=== PATIENT | male | born 1975 | race Caucasian/White ===

== ENCOUNTER 2024-04-20 13:33 | Observation (INO) ==
[2024-04-20 14:17] LABS: BASOPHILS % (AUTO) 0.6 % (0.2-1.0); EOSINOPHILS # (AUTO) 0.3 x10^3/uL (0.0-0.2); EOSINOPHILS % (AUTO) 5.3 % (0.9-2.9); HEMOGLOBIN 13.1 g/dL (13.5-18.0); LYMPHOCYTES # (AUTO) 0.5 X10^3/uL (1.3-2.9); LYMPHOCYTES % (AUTO) 8.7 % (21.0-51.0); MEAN CORPUSCULAR HEMOGLOBIN 23.1 pg (27.0-34.0); MEAN CORPUSCULAR HGB CONC 31.2 g/dL (33.0-35.0); MEAN PLATELET VOLUME 7.6 fL (7.4-11.0); MONOCYTES # (AUTO) 0.6 x10^3/uL (0.3-0.8); MONOCYTES % (AUTO) 10.7 % (0.0-13.0); NEUTROPHILS % (AUTO) 74.7 % (42.0-75.0); PLATELET COUNT 198 X10^3/uL (150.0-450.0); RED BLOOD COUNT 5.68 X10^6/uL (4.7-6.0); RED CELL DISTRIBUTION WIDTH 16.7 % (11.6-16.5); WHITE BLOOD COUNT 5.4 X10^3/uL (3.6-10.0)
[2024-04-20 14:22] LABS: INR 1.03 (0.8-1.3)
[2024-04-20 14:22] LABS: ABG BASE EXCESS 18.5 mmol/L (-2.0-2.0)
[2024-04-20 14:23] LABS: ABG HCO3 46.2 mmol/L (22-26)
[2024-04-20 14:29] LABS: ALANINE AMINOTRANSFERASE 25 Units/L (12-78); ALBUMIN 3.3 g/dL (3.4-5.0); ALKALINE PHOSPHATASE 120 Units/L (46-116); ASPARTATE AMINO TRANSFERASE 16 Units/L (15-37); BLOOD UREA NITROGEN 11 mg/dL (7-18); CALCIUM 9.3 mg/dL (8.5-10.1); CARBON DIOXIDE 41.5 mmol/L (21-32); CHLORIDE 98 mmol/L (98-107); COR CA(FOR HYPOALB) 9.9 mg/dL (8.5-10.1); COR NA(FOR HYPERGLY) 141 mmol/L (136-145); CREATINE KINASE 46 Units/L (39-308); GLUCOSE 148 mg/dL (65-99); MAGNESIUM 1.5 mg/dL (2.0-2.9); POTASSIUM 4.8 mmol/L (3.5-5.1); SODIUM 140 mmol/L (136-145); TOTAL PROTEIN 7.7 g/dL (6.4-8.2); eGFR NON BLACK RACES > 60 (>60)
[2024-04-20 14:38] LABS: PLATELET MORPHOLOGY COMMENT NORMAL (NORMAL)
[2024-04-20 14:39] LABS: MICROCYTOSIS SLIGHT
[2024-04-20] MEDS: DECADRON INJ IVP ONE (15:16)
[2024-04-20] MEDS: DUONEB 0.5 MG/3 MG (3 mL) NEB ONE (15:20)
--- NOTE | 2024-04-20 15:21 | EKG ---
Test Reason : Dyspnea Blood Pressure : */* mmHG Vent. Rate : 95 BPM Atrial Rate : 95 BPM P-R Int : 148 ms QRS Dur : 80 ms QT Int : 348 ms P-R-T Axes : 74 49 67 degrees QTc Int : 437 ms Normal sinus rhythm Normal ECG No previous ECGs available Confirmed by Narinder Bryson MD ([id number]) on 04/21/2024 7:46:58 AM Referred By: Confirmed By: Narinder Bryson MD
--- NOTE | 2024-04-20 16:44 | RAD ---
EXAM: CHEST, 1 VIEW HISTORY: SHORTNESS OF BREATH; COMPARISON: None. TECHNIQUE: Single frontal view of the chest FINDINGS: Limited inspiratory effort results in suboptimal evaluation. Subsegmental linear airspace opacities are demonstrated within the left lung base probably corresponding to atelectatic change. The left di aphragm is slightly elevated. The heart size appears average for inspiratory effort. There is no pn eumothorax. IMPRESSION: Suboptimal evaluation due to limited inspiratory effort with subsegmental left basilar atelectasis. Consider diagnostic two-view chest at earliest convenience. THIS IS AN ELECTRONICALLY VERIFIED FINAL REPORT 04/20/2024 4:40 PM - Electronically signed by Wayne Fletcher MD
--- NOTE | 2024-04-20 16:52 | CT ---
EXAM:CT PULMONARY ANGIOGRAM CHEST WITH CONTRAST (PE PROTOCOL)HISTORY:CHEST PAIN, DYSPNEA;COMPARISON:None.TECHNIQUE:Axial CT images were obtained through the chest after the intravenous administration of contrast. Coronal reformatted images were included. Maximum intensity projection (MIP) images were performed per pulmonary angiogram protocol.Informed written consent was obtained prior to contrast administration.All CT scans at this facility use dose modulation, iterative reconstruction, and/or weight based dosing when appropriate to reduce radiation dose to as low as reasonably achievable.FINDINGS:HEART AND PULMONARY ARTERIES: No pulmonary embolism is evident. Main pulmonary artery is enlarged, suggesting pulmonary hypertension. Heart size appears mildly enlarged. Coronary artery atherosclerosis. Small hiatal hernia.SUPPORT DEVICES: NoneLYMPH NODES: Mediastinal, hilar, and supraclavicular lymphadenopathy is noted, suggesting possible lymphoma or less likely metastatic disease. Reference conglomerate of lymph nodes in the right paratracheal region measure up to 5.0 x 3.1 cm. Conglomerate of right hilar lymph nodes measures 3.6 x 4.2 cm. An enlarged right supraclavicular lymph node measures 2.5 x 1.6 cm.LUNGS AND PLEURA: Hypoventilatory changes noted at the lung bases. Small volume fluid noted within the right major fissure. Small left pleural effusion.AIRWAYS: NormalUPPER ABDOMEN: Mildly enlarged lymph nodes identified within the gastrohepatic ligament measures 1.8 cm in size. Epiphrenic lymph node measures 1.7 x 1.5 cm. Contrast material is noted within the kidneys bilaterally.BONES: Degenerative changes noted within the visualized thoracolumbar spine.IMPRESSION:Extensive lymphadenopathy identified within the chest and upper abdomen, in a pattern suggesting possible lymphoma. Correlation recommended.No pulmonary embolism.Main pulmonary artery is mildly enlarged, suggesting pulmonary hypertension.Small left pleural effusion. Hypoventilatory changes noted within the lungs.THIS IS AN ELECTRONICALLY VERIFIED FINAL REPORT04/20/2024 4:49 PM - Electronically signed by Preston Head MD
--- NOTE | 2024-04-20 18:29 | DR.SOBA ---
HPI Time Seen Time Seen by Provider: 04/20/24 13:48 Primary Care Physician Primary Care Physician: Dr. Haile Complaints Chief Complaint Doctors Comments: 49 yo M, hx of COPD, c/o increasing dyspnea over the past month, markedly worse the past couple days. c/o assoc orthopnea. Denies fever or chest pain. Denies prod cough. Chief Complaint:: Pt c/o chronic dyspnea that has been progressively worsening over the past month. Pt states that last night when he laid down in the bed he felt like he was suffocating and had to get back up to be able to breathe. Pt denies any cough or fever. Pt does c/o right wrist pain described as mild aching in nature. Denies any injury. Pt states, "I think I'm having a gout flare." COVID-19 Coronavirus risk:travel/contact w/high risk person: No Has patient experienced Coronavirus symptoms: No Source History Provided: Patient Mode of Arrival Mode of Arrival: Ambulatory Timing Onset of Chief Complaint: 04/19/24 PMH PMH Past Medical History: Yes Past Medical History: COPD, Gout and Hypertension Past Medical History Comment: PVD Past Surgical History: No Family History History of Family Medical Conditions: Yes Family Medical History: Diabetes Mellitus, [place], Coronary Artery Disease and Hypertension Social History Does patient currently use any type of tobacco product: No Have you used tobacco products in the last 12 months: No Type of Tobacco Use: None Does any household member use tobacco: No Alcohol Use: None Do you use any recreational Drugs:: No Lives With: Family Lives Where: Home Travel Risk Coronavirus risk:travel/contact w/high risk person: No Has patient experienced Coronavirus symptoms: No Infectious screening In the last 2 months have you had wt loss of >10#?: NO Have you had fever, night sweats or hemotysis?: No Have you traveled outside the country in the last 6 months?: No Isolation: Standard ROS Review of Systems Respiratoy: Short of Breath All Other Systems: Reviewed and Negative PE Vital Signs Vitals: Vital Signs Temperature 98.7 F Pulse Rate 99 Pulse Rate 102 Pulse Rate 95 Pulse Rate 92 Pulse Rate 109 Pulse Rate 95 Pulse Rate 92 Pulse Rate 97 Pulse Rate 96 Pulse Rate 98 Pulse Rate 113 Pulse Rate 91 Pulse Rate 91 Pulse Rate 92 Pulse Rate 90 Pulse Rate 84 Pulse Rate 87 Pulse Rate 88 Pulse Rate 92 Pulse Rate 94 Pulse Rate 92 Pulse Rate 92 Pulse Rate 99 Respiratory Rate 40 Respiratory Rate 42 Respiratory Rate 39 Respiratory Rate 42 Respiratory Rate 56 Respiratory Rate 29 Respiratory Rate 40 Respiratory Rate 34 Respiratory Rate 38 Respiratory Rate 45 Respiratory Rate 44 Respiratory Rate 33 Respiratory Rate 35 Respiratory Rate 28 Respiratory Rate 24 Respiratory Rate 36 Respiratory Rate 37 Respiratory Rate 29 Respiratory Rate 51 Respiratory Rate 22 Respiratory Rate 36 Respiratory Rate 26 Blood Pressure 165/86 Blood Pressure 165/86 Blood Pressure 151/92 Blood Pressure 160/90 Blood Pressure 148/80 Blood Pressure 160/92 Blood Pressure 155/81 Blood Pressure 131/70 Blood Pressure 135/75 Blood Pressure 138/78 Blood Pressure 133/80 Blood Pressure 127/64 O2 Sat by Pulse Oximetry 92 O2 Sat by Pulse Oximetry 92 O2 Sat by Pulse Oximetry 93 O2 Sat by Pulse Oximetry 94 O2 Sat by Pulse Oximetry 93 O2 Sat by Pulse Oximetry 93 O2 Sat by Pulse Oximetry 94 O2 Sat by Pulse Oximetry 95 O2 Sat by Pulse Oximetry 94 O2 Sat by Pulse Oximetry 86 O2 Sat by Pulse Oximetry 94 O2 Sat by Pulse Oximetry 95 O2 Sat by Pulse Oximetry 98 O2 Sat by Pulse Oximetry 95 O2 Sat by Pulse Oximetry 94 O2 Sat by Pulse Oximetry 94 O2 Sat by Pulse Oximetry 95 O2 Sat by Pulse Oximetry 88 O2 Sat by Pulse Oximetry 88 O2 Sat by Pulse Oximetry 90 O2 Sat by Pulse Oximetry 84 General Limitations: No Limitations General Appearance: Alert and In No Apparent Distress Head Head Exam: Normal Inspection Eyes Eye exam: Normal Appearance ENT ENT Exam: Normal Exam Neck Neck Exam: Normal Inspection Chest Chest Inspection: Normal Inspection Respiratory Respiratory Exam: Normal Lung Sounds Bilat; negative Prolonged Expiratory Phase or Respiratory Distress Cardiovascular Cardiovascular Exam: Regular Rate and Normal Rhythm Abdominal Exam Abdominal Exam: Normal Inspection, Normal Bowel Sounds and Soft Extremities Extremities Exam: Normal Inspection Back Back Exam: Normal Inspection Neurologic Neurological Exam: Alert and Oriented X3 Psychiatric Psychiatric Exam: Normal Affect and Normal Mood Skin Skin Exam: Warm, Dry, Intact and Normal Color ROR Labs Reviewed 04/20/24 14:05 04/20/24 14:05 Laboratory: WBC 5.4 X10^3/uL (3.6-10.0) 04/20/24 14:05 RBC 5.68 X10^6/uL (4.7-6.0) 04/20/24 14:05 Hgb 13.1 g/dL (13.5-18.0) L 04/20/24 14:05 Hct 42.0 % (42.0-54.0) 04/20/24 14:05 MCV 74.0 fL (80.0-100.0) L 04/20/24 14:05 MCH 23.1 pg (27.0-34.0) L 04/20/24 14:05 MCHC 31.2 g/dL (33.0-35.0) L 04/20/24 14:05 RDW 16.7 % (11.6-16.5) H 04/20/24 14:05 Plt Count 198 X10^3/uL (150.0-450.0) 04/20/24 14:05 Plt Count Comment Adequate (ADEQUATE) 04/20/24 14:05 MPV 7.6 fL (7.4-11.0) 04/20/24 14:05 Neut % (Auto) 74.7 % (42.0-75.0) 04/20/24 14:05 Lymph % (Auto) 8.7 % (21.0-51.0) L 04/20/24 14:05 [place] % (Auto) 10.7 % (0.0-13.0) 04/20/24 14:05 Eos % (Auto) 5.3 % (0.9-2.9) H 04/20/24 14:05 Baso % (Auto) 0.6 % (0.2-1.0) 04/20/24 14:05 Neut # (Auto) 4.0 x10^3/uL (2.2-4.8) 04/20/24 14:05 Lymph # (Auto) 0.5 X10^3/uL (1.3-2.9) L 04/20/24 14:05 [place] # (Auto) 0.6 x10^3/uL (0.3-0.8) 04/20/24 14:05 Eos # (Auto) 0.3 x10^3/uL (0.0-0.2) H 04/20/24 14:05 Baso # (Auto) 0.0 X10^3/uL (0.0-0.1) 04/20/24 14:05 Absolute Nucleated RBC 0.0 /100WBC 04/20/24 14:05 Plt Morphology Comment Normal (NORMAL) 04/20/24 14:05 RBC Morphology Abnormal (NORMAL) 04/20/24 14:05 Microcytosis Slight A 04/20/24 14:05 PT 13.3 SECONDS (11.8-14.3) 04/20/24 14:05 INR Target Range - 04/20/24 14:05 INR 1.03 (0.8-1.3) 04/20/24 14:05 APTT 25.8 SECONDS (22.9-36.5) 04/20/24 14:05 PTT Comment - 04/20/24 14:05 Sample Site Lb 04/20/24 14:17 ABG pH 7.440 (7.35-7.45) 04/20/24 14:17 ABG pCO2 68.0 mmHg (35.0-45.0) H* 04/20/24 14:17 ABG pO2 47.0 mmHg (80.0-100.0) L* 04/20/24 14:17 ABG HCO3 46.2 mmol/L (22-26) H* 04/20/24 14:17 ABG O2 Saturation 84.0 % (90-100) L* 04/20/24 14:17 ABG Base Excess 18.5 mmol/L (-2.0-2.0) H 04/20/24 14:17 Daniel Test N/a 04/20/24 14:17 A-a Gradient 18.0 mmHg 04/20/24 14:17 FiO2 21.0 04/20/24 14:17 Blood Gas Comments Pt margarita well. kg/eb 04/20/24 14:17 Sodium 140 mmol/L (136-145) 04/20/24 14:05 Corrected Sodium 141 mmol/L (136-145) 04/20/24 14:05 Potassium 4.8 mmol/L (3.5-5.1) 04/20/24 14:05 Chloride 98 mmol/L (98-107) 04/20/24 14:05 Carbon Dioxide 41.5 mmol/L (21-32) H 04/20/24 14:05 BUN 11 mg/dL (7-18) 04/20/24 14:05 Creatinine 1.00 mg/dL (0.70-1.30) 04/20/24 14:05 Est GFR (MDRD) Af Amer > 60 (>60) 04/20/24 14:05 Est GFR (MDRD) Non-Af > 60 (>60) 04/20/24 14:05 Glucose 148 mg/dL (65-99) H 04/20/24 14:05 Calcium 9.3 mg/dL (8.5-10.1) 04/20/24 14:05 Corrected Calcium 9.9 mg/dL (8.5-10.1) 04/20/24 14:05 Magnesium 1.5 mg/dL (2.0-2.9) L 04/20/24 14:05 Total Bilirubin 0.30 mg/dL (0.2-1.0) 04/20/24 14:05 AST 16 Units/L (15-37) 04/20/24 14:05 ALT 25 Units/L (12-78) 04/20/24 14:05 Alkaline Phosphatase 120 Units/L (46-116) H 04/20/24 14:05 Creatine Kinase 46 Units/L (39-308) 04/20/24 14:05 Troponin I High Sens 12.0 ng/L (4.0-60.0) 04/20/24 14:05 B-Natriuretic Peptide 11.3 pg/mL (0-79) 04/20/24 14:05 Total Protein 7.7 g/dL (6.4-8.2) 04/20/24 14:05 Albumin 3.3 g/dL (3.4-5.0) L 04/20/24 14:05 Globulin 4.4 g/dL (2.5-4.5) 04/20/24 14:05 Albumin/Globulin Ratio 0.8 Ratio (1.1-2.1) L 04/20/24 14:05 Opioid Opioid Risk Tool Age (Isaias box if 16-45): No History of Preadolescent Sexual Abuse: No Total: 0 Total Score Risk Category: Low Risk Copyright: Sampson ROWAN predicting aberrant behaviors Discharge Plan Diagnosis Discharge Problem: Hypoxia, Acute exacerbation of chronic obstructive pulmonary disease, Lymphadenopathy, mediastinal Discharge Plan Patient Disposition: 09 ADMITTED INPATIENT Condition: Stable Prescriptions: No Action albuterol sulfate 90 mcg/actuation HFA aerosol inhaler 2 puff INHALATION Q4-6H PRN Trelegy Ellipta 200-62.5-25 mcg blister with device 1 inh INHALATION QDAY Health Concerns: Post Hospitalization: new medications and changes needed to prevent readmission or further decline. Pt educated and given instructions on all concerns. Plan of Treatment: Continue with present treatment and follow up plan. Pt is to keep follow up appointment as instructed and take medications as ordered. Orders to Discharge Patient Discharge Orders: Transfer (Routine); Ordered 04/20/24 Ordered By: Jt Hobbs Follow ups/Referrals Follow ups/Referrals: BRANDY HAILE [Primary Care Provider] - 3 days Instructions Stand Alone Forms: Find Help Web Site, Post Hospital Follow Up Care ADDITIONAL NOTES Additional Notes Additional Notes: Will admit for hypoxia, further workup of adenopathy. Spoke with pt and about lymphadenopathy and possibility of lymphoma. Accepted by Dr Crawford at [phone].
[2024-04-20] MEDS ORDERED: VENTOLIN or PROAIR HFA IN PRN (19:57)
[2024-04-20] MEDS: OMNIPAQUE 350 mg/mL 100 mL BTL 100 ML ONE (20:09)
[2024-04-20] MEDS: DECADRON INJ ONE (20:10)
[2024-04-20 21:03] VITALS: BMI 44.8
--- NOTE | 2024-04-20 21:33 | EKG ---
Test Reason : Dyspnea Blood Pressure : */* mmHG Vent. Rate : 100 BPM Atrial Rate : 100 BPM P-R Int : 150 ms QRS Dur : 84 ms QT Int : 334 ms P-R-T Axes : 59 47 71 degrees QTc Int : 430 ms Normal sinus rhythm Normal ECG When compared with ECG of 20-APR-2024 15:13, (Unconfirmed) No significant change was found Confirmed by Narinder Bryson MD ([id number]) on 04/21/2024 7:45:45 AM Referred By: Confirmed By: Narinder Bryson MD
[2024-04-20] MEDS: ULTRAM PO PRN (22:17)
[2024-04-20] MEDS: NS 1,000 ML IV 1,000 ML IV SCH (23:37)
[2024-04-21] MEDS: DUONEB 0.5 MG/3 MG (3 mL) NEB SCH (01:30)
--- NOTE | 2024-04-21 01:35 | EKG ---
Test Reason : Dyspnea Blood Pressure : */* mmHG Vent. Rate : 97 BPM Atrial Rate : 97 BPM P-R Int : 142 ms QRS Dur : 80 ms QT Int : 338 ms P-R-T Axes : 69 52 65 degrees QTc Int : 429 ms Normal sinus rhythm baseline artifact Abnormal ECG When compared with ECG of 20-APR-2024 21:16, (Unconfirmed) No significant change was found Confirmed by Narinder Bryson MD ([id number]) on 04/21/2024 7:44:48 AM Referred By: Confirmed By: Narinder Bryson MD
[2024-04-21 05:16] LABS: BASOPHILS % (AUTO) 0.4 % (0.2-1.0); EOSINOPHILS % (AUTO) 0.1 % (0.9-2.9); HEMATOCRIT 41.2 % (42.0-54.0); INR 1.08 (0.8-1.3); LYMPHOCYTES # (AUTO) 0.4 X10^3/uL (1.3-2.9); LYMPHOCYTES % (AUTO) 5.6 % (21.0-51.0); MEAN CORPUSCULAR HEMOGLOBIN 23.3 pg (27.0-34.0); MEAN CORPUSCULAR HGB CONC 31.5 g/dL (33.0-35.0); MEAN CORPUSCULAR VOLUME 73.8 fL (80.0-100.0); MEAN PLATELET VOLUME 8.4 fL (7.4-11.0); MONOCYTES # (AUTO) 0.4 x10^3/uL (0.3-0.8); NEUTROPHILS # (AUTO) 6.3 x10^3/uL (2.2-4.8); NEUTROPHILS % (AUTO) 88.9 % (42.0-75.0); PLATELET COUNT 191 X10^3/uL (150.0-450.0); RED BLOOD COUNT 5.59 X10^6/uL (4.7-6.0); RED CELL DISTRIBUTION WIDTH 16.9 % (11.6-16.5); WHITE BLOOD COUNT 7.1 X10^3/uL (3.6-10.0)
[2024-04-21 05:31] LABS: ALANINE AMINOTRANSFERASE 25 Units/L (12-78); ALBUMIN 3.3 g/dL (3.4-5.0); ALKALINE PHOSPHATASE 118 Units/L (46-116); ASPARTATE AMINO TRANSFERASE 13 Units/L (15-37); BLOOD UREA NITROGEN 16 mg/dL (7-18); CALCIUM 9.4 mg/dL (8.5-10.1); CARBON DIOXIDE 40.7 mmol/L (21-32); CHLORIDE 96 mmol/L (98-107); CHOL/HDL RATIO 4.9 (0.0-5.0); CHOLESTEROL 182 mg/dL (0-200); COR NA(FOR HYPERGLY) 140 mmol/L (136-145); CREATININE 1.15 mg/dL (0.70-1.30); GLUCOSE 299 mg/dL (65-99); HDL CHOLESTEROL 37 mg/dL (40-60); MAGNESIUM 1.7 mg/dL (2.0-2.9); SODIUM 135 mmol/L (136-145); TOTAL PROTEIN 7.8 g/dL (6.4-8.2); TRIGLYCERIDES 38 mg/dL (0-150); eGFR NON BLACK RACES > 60 (>60)
[2024-04-21 05:36] LABS: POTASSIUM 5.1 mmol/L (3.5-5.1)
[2024-04-21 05:38] LABS: HYPOCHROMASIA 1+; MICROCYTOSIS SLIGHT; PLATELET MORPHOLOGY COMMENT NORMAL (NORMAL); STOMATOCYTES PRESENT
--- NOTE | 2024-04-21 08:13 | EKG ---
Test Reason : Dyspnea Blood Pressure : */* mmHG Vent. Rate : 81 BPM Atrial Rate : 81 BPM P-R Int : 162 ms QRS Dur : 78 ms QT Int : 358 ms P-R-T Axes : 60 46 66 degrees QTc Int : 415 ms Normal sinus rhythm with sinus arrhythmia Normal ECG When compared with ECG of 21-APR-2024 01:18, No significant change was found Confirmed by Narinder Bryson MD ([id number]) on 04/22/2024 8:28:28 AM Referred By: Confirmed By: Narinder Bryson MD
[2024-04-21] MEDS ORDERED: PATIENT'S HOME MEDICATION (Fluticasone-Umeclidin-Vilanter [Trelegy Ellipta] 200-62.5-25 mc IN SCH (09:00)
[2024-04-21] MEDS: PULMICORT NEB TX 0.5 MG NEB SCH (09:08)
--- NOTE | 2024-04-21 10:38 | RAD ---
EXAM:AP chestHISTORY:DyspneaCOMPARISON: 5FINDINGS:Mild cardiomegaly. Lung volumes are reduced with elevated diaphragm, accentuating bibasal areas of subsegmental atelectasis.IMPRESSION:Slight increase in bibasal atelectasis, accentuated by moderately reduced lung volumes and hypoventilation.THIS IS AN ELECTRONICALLY VERIFIED FINAL REPORT04/21/2024 10:34 AM - Electronically signed by Mamadou Lima MD
[2024-04-21 11:44] LABS: RETICULOCYTE % 1.21 % (0.8-2.2)
[2024-04-21 12:05] LABS: FREE T4 (FREE THYROXINE) 0.96 ng/dL (0.76-1.46); TSH (3RD GENERATION) 0.222 uIU/mL (0.358-3.74)
[2024-04-21] MEDS: LASIX IVP SCH (12:53)
[2024-04-21] MEDS: LOVENOX INJ 40 MG SYR SC SCH (12:54)
--- NOTE | 2024-04-21 15:13 | CT ---
EXAM:CT ABDOMEN AND PELVIS WITH CONTRASTHISTORY:ABNORMAL CHEST CT, ?[place];COMPARISON:CT chest April 20, 2023.TECHNIQUE:Axial CT images were obtained through the abdomen and pelvis after the intravenous administration of contrast. Coronal reformatted images were included.Informed written consent was obtained prior to contrast administration.All CT scans at this facility use dose modulation, iterative reconstruction, and/or weight based dosing when appropriate to reduce radiation dose to as low as reasonably achievable.FINDINGS:LOWER THORAX: Enlarged mediastinal and hilar nodes are seen as seen on previous CT of the chestABDOMEN:LIVER: Within normal limits.GALLBLADDER: Within normal limits.SPLEEN: Within normal limits.PANCREAS: Within normal limits.KIDNEYS: Within normal limits.ADRENAL GLANDS: Within normal limits.GI TRACT: Course and caliber are within normal limits.LYMPH NODES: No significant pathologic adenopathy in the abdomen or pelvisVESSELS: Within normal limits.PERITONEUM / RETROPERITONEUM: Large ventral hernia related to rectus diastasisPELVIS:BLADDER: Within normal limits.GENITALS: Within normal limits.BONES: Within normal limits.IMPRESSION:No definite pathologic adenopathy in the abdomen or pelvis.THIS IS AN ELECTRONICALLY VERIFIED FINAL REPORT04/21/2024 3:09 PM - Electronically signed by Preston Wheatley MD
[2024-04-21] MEDS: OMNIPAQUE 350 mg/mL 100 mL BTL 100 ML ONE (15:59)
[2024-04-21] MEDS ORDERED: CONSULT PHARMACY - POTASSIUM & MAGNESIUM XX SCH (19:00)
[2024-04-21] MEDS: MAG-OX TAB PO SCH (20:11)
[2024-04-22 05:11] LABS: BASOPHILS % (AUTO) 0.4 % (0.2-1.0); EOSINOPHILS # (AUTO) 0.1 x10^3/uL (0.0-0.2); EOSINOPHILS % (AUTO) 1.3 % (0.9-2.9); HEMATOCRIT 39.5 % (42.0-54.0); HEMOGLOBIN 12.4 g/dL (13.5-18.0); LYMPHOCYTES # (AUTO) 0.5 X10^3/uL (1.3-2.9); LYMPHOCYTES % (AUTO) 9.4 % (21.0-51.0); MEAN CORPUSCULAR HEMOGLOBIN 23.1 pg (27.0-34.0); MEAN CORPUSCULAR HGB CONC 31.5 g/dL (33.0-35.0); MEAN CORPUSCULAR VOLUME 73.2 fL (80.0-100.0); MEAN PLATELET VOLUME 8.3 fL (7.4-11.0); MONOCYTES # (AUTO) 0.4 x10^3/uL (0.3-0.8); MONOCYTES % (AUTO) 7.5 % (0.0-13.0); NEUTROPHILS # (AUTO) 4.8 x10^3/uL (2.2-4.8); NEUTROPHILS % (AUTO) 81.4 % (42.0-75.0); PLATELET COUNT 160 X10^3/uL (150.0-450.0); RED BLOOD COUNT 5.39 X10^6/uL (4.7-6.0); RED CELL DISTRIBUTION WIDTH 16.8 % (11.6-16.5); WHITE BLOOD COUNT 5.8 X10^3/uL (3.6-10.0)
[2024-04-22 05:13] LABS: ALANINE AMINOTRANSFERASE 22 Units/L (12-78); ALBUMIN 3.3 g/dL (3.4-5.0); ALKALINE PHOSPHATASE 101 Units/L (46-116); ASPARTATE AMINO TRANSFERASE 13 Units/L (15-37); BLOOD UREA NITROGEN 24 mg/dL (7-18); CALCIUM 8.7 mg/dL (8.5-10.1); CARBON DIOXIDE 42.9 mmol/L (21-32); CHLORIDE 96 mmol/L (98-107); CHOL/HDL RATIO 4.8 (0.0-5.0); CHOLESTEROL 167 mg/dL (0-200); COR CA(FOR HYPOALB) 9.3 mg/dL (8.5-10.1); COR NA(FOR HYPERGLY) 142 mmol/L (136-145); CREATININE 1.23 mg/dL (0.70-1.30); GLUCOSE 243 mg/dL (65-99); HDL CHOLESTEROL 35 mg/dL (40-60); POTASSIUM 4.3 mmol/L (3.5-5.1); SODIUM 139 mmol/L (136-145); TOTAL PROTEIN 7.4 g/dL (6.4-8.2); TRIGLYCERIDES 62 mg/dL (0-150); eGFR NON BLACK RACES > 60 (>60)
[2024-04-22 05:19] LABS: HYPOCHROMASIA 1+; MICROCYTOSIS SLIGHT; PLATELET MORPHOLOGY COMMENT NORMAL (NORMAL); STOMATOCYTES PRESENT
--- NOTE | 2024-04-22 07:16 | RAD ---
EXAMINATION: CHEST, 1 VIEW HISTORY: SOB, HYPOXIA; . COMPARISON STUDY: Chest x-ray 04/21/2023 TECHNIQUE: Single frontal view of the chest FINDINGS: Details are limited by the patient's body habitus. Patchy alveolar infiltrate left mid and lower anibal g field. Obscuring of the left CP angle. Mild cardiac silhouette enlargement. Normal pulmonary vas cular pattern. Bones appear intact. IMPRESSION: Details limited by patient body habitus. Infiltrate left mid and lower lung field. Cardiac silhouet te enlargement. THIS IS AN ELECTRONICALLY VERIFIED FINAL REPORT 04/22/2024 7:12 AM - Electronically signed by Codie Otoole MD
[2024-04-22 07:44] LABS: ABG BASE EXCESS 15.3 mmol/L (-2.0-2.0)
[2024-04-22 07:46] LABS: ABG HCO3 43.8 mmol/L (22-26)
[2024-04-22 07:47] LABS: ABG ALLEN TEST POS
[2024-04-22] MEDS ORDERED: CONSULT PHARMACY - POTASSIUM & MAGNESIUM XX SCH ×2 (08:00→09:00)
[2024-04-22] MEDS: COZAAR PO SCH (09:13)
[2024-04-22] MEDS: ROBITUSSIN DM PO SCH (09:13)
[2024-04-22] MEDS: PROTONIX TAB 40 MG PO SCH (09:13)
[2024-04-22] MEDS: SOLU-Medrol 125 MG VIAL IVP SCH (09:13)
[2024-04-22] MEDS: ZITHROMAX INJ 500 MG VIAL 500 MG in D5W 250 ML IV 250 ML IV SCH (09:13)
[2024-04-22] MEDS: MAG-OX TAB PO SCH (09:14)
[2024-04-23 04:45] LABS: BASOPHILS % (AUTO) 0.2 % (0.2-1.0); HEMATOCRIT 41.1 % (42.0-54.0); LYMPHOCYTES # (AUTO) 0.4 X10^3/uL (1.3-2.9); LYMPHOCYTES % (AUTO) 4.1 % (21.0-51.0); MEAN CORPUSCULAR HEMOGLOBIN 23.1 pg (27.0-34.0); MEAN CORPUSCULAR HGB CONC 31.7 g/dL (33.0-35.0); MEAN CORPUSCULAR VOLUME 72.9 fL (80.0-100.0); MEAN PLATELET VOLUME 8.1 fL (7.4-11.0); MONOCYTES # (AUTO) 0.2 x10^3/uL (0.3-0.8); MONOCYTES % (AUTO) 1.9 % (0.0-13.0); NEUTROPHILS # (AUTO) 9.2 x10^3/uL (2.2-4.8); NEUTROPHILS % (AUTO) 93.8 % (42.0-75.0); PLATELET COUNT 209 X10^3/uL (150.0-450.0); RED BLOOD COUNT 5.64 X10^6/uL (4.7-6.0); RED CELL DISTRIBUTION WIDTH 17.1 % (11.6-16.5); WHITE BLOOD COUNT 9.8 X10^3/uL (3.6-10.0)
[2024-04-23 04:49] LABS: BLOOD UREA NITROGEN 25 mg/dL (7-18); CALCIUM 8.6 mg/dL (8.5-10.1); CARBON DIOXIDE 35.8 mmol/L (21-32); CHLORIDE 93 mmol/L (98-107); COR NA(FOR HYPERGLY) 142 mmol/L (136-145); CREATININE 1.35 mg/dL (0.70-1.30); GLUCOSE 335 mg/dL (65-99); POTASSIUM 4.6 mmol/L (3.5-5.1); SODIUM 136 mmol/L (136-145); eGFR NON BLACK RACES 60 (>60)
[2024-04-23 04:56] LABS: MAGNESIUM 1.7 mg/dL (2.0-2.9)
[2024-04-23] MEDS ORDERED: CONSULT PHARMACY - POTASSIUM & MAGNESIUM XX SCH (05:00)
[2024-04-23 05:16] LABS: ANISOCYTOSIS SLIGHT; HYPOCHROMASIA 1+; MICROCYTOSIS SLIGHT; PLATELET MORPHOLOGY COMMENT NORMAL (NORMAL); STOMATOCYTES PRESENT
[2024-04-23] MEDS: NovoLIN R (or HumuLIN R) SUBCUT PRN (05:56)
[2024-04-23 06:51] LABS: ALANINE AMINOTRANSFERASE 24 Units/L (12-78); ALBUMIN 3.5 g/dL (3.4-5.0); ALKALINE PHOSPHATASE 104 Units/L (46-116); ASPARTATE AMINO TRANSFERASE 13 Units/L (15-37); TOTAL PROTEIN 7.9 g/dL (6.4-8.2)
[2024-04-23 09:39] LABS: URIC ACID 6.6 mg/dL (3.5-7.2)
[2024-04-23] MEDS: MAG-OX TAB PO SCH (09:40)
[2024-04-23] MEDS: SNACK - Diabetic Appropriate PO SCH (20:25)
[2024-04-23] MEDS: XYLOCAINE 1% and EPINEPHRINE 1:100,000 ONE (22:17)
[2024-04-24 04:18] VITALS: O2SAT 96
[2024-04-24 04:58] LABS: BASOPHILS % (AUTO) 0.2 % (0.2-1.0); EOSINOPHILS % (AUTO) 0.5 % (0.9-2.9); HEMATOCRIT 39.7 % (42.0-54.0); HEMOGLOBIN 12.4 g/dL (13.5-18.0); LYMPHOCYTES # (AUTO) 0.6 X10^3/uL (1.3-2.9); LYMPHOCYTES % (AUTO) 8.2 % (21.0-51.0); MEAN CORPUSCULAR HEMOGLOBIN 23.1 pg (27.0-34.0); MEAN CORPUSCULAR HGB CONC 31.2 g/dL (33.0-35.0); MEAN CORPUSCULAR VOLUME 74.1 fL (80.0-100.0); MEAN PLATELET VOLUME 7.9 fL (7.4-11.0); MONOCYTES # (AUTO) 0.6 x10^3/uL (0.3-0.8); MONOCYTES % (AUTO) 7.8 % (0.0-13.0); NEUTROPHILS # (AUTO) 6.1 x10^3/uL (2.2-4.8); NEUTROPHILS % (AUTO) 83.3 % (42.0-75.0); PLATELET COUNT 186 X10^3/uL (150.0-450.0); RED BLOOD COUNT 5.35 X10^6/uL (4.7-6.0); RED CELL DISTRIBUTION WIDTH 17.2 % (11.6-16.5); WHITE BLOOD COUNT 7.4 X10^3/uL (3.6-10.0)
[2024-04-24 05:10] LABS: ALANINE AMINOTRANSFERASE 20 Units/L (12-78); ALBUMIN 3.2 g/dL (3.4-5.0); ALKALINE PHOSPHATASE 88 Units/L (46-116); ASPARTATE AMINO TRANSFERASE 11 Units/L (15-37); BLOOD UREA NITROGEN 27 mg/dL (7-18); CALCIUM 8.4 mg/dL (8.5-10.1); CHLORIDE 99 mmol/L (98-107); COR NA(FOR HYPERGLY) 141 mmol/L (136-145); CREATININE 1.22 mg/dL (0.70-1.30); GLUCOSE 222 mg/dL (65-99); POTASSIUM 4.2 mmol/L (3.5-5.1); SODIUM 138 mmol/L (136-145); eGFR NON BLACK RACES > 60 (>60)
[2024-04-24 05:16] LABS: PLATELET MORPHOLOGY COMMENT NORMAL (NORMAL)
[2024-04-24 05:17] LABS: ANISOCYTOSIS SLIGHT; HYPOCHROMASIA 1+; MICROCYTOSIS SLIGHT
[2024-04-24] MEDS: PREDNISONE TAB 20 MG PO SCH (09:44)
[2024-04-24 13:21] VITALS: RESP 19
[2024-04-24 13:43] VITALS: BP 138/90; PULSE 98; TEMP 98.6
== END 2024-04-24 14:30 | disposition home or self-care (01) ==
LOC: MED/SURG 13:33 → ER 13:33 → MED/SURG 19:44
PROVIDERS: ADMIT Internal Medicine; ATTEND Obstetrics & Gynecology Obstetrics
DX: Z59.86 Financial insecurity; E83.42 Hypomagnesemia; Z68.42 Body mass index [BMI] 45.0-49.9, adult; R51.9 Headache, unspecified; M25.531 Pain in right wrist; R06.02 Shortness of breath; Z59.12 Inadequate housing utilities; R59.0 Localized enlarged lymph nodes; Z59.41 Food insecurity; J90 Pleural effusion, not elsewhere classified; J44.1 Chronic obstructive pulmonary disease with (acute) exacerbation; K43.9 Ventral hernia without obstruction or gangrene; R07.89 Other chest pain; M10.9 Gout, unspecified; Z65.8 Other specified problems related to psychosocial circumstances; Z59.82 Transportation insecurity; R73.09 Other abnormal glucose; R06.09 Other forms of dyspnea; E66.89 Other obesity not elsewhere classified; I10 Essential (primary) hypertension; R70.0 Elevated erythrocyte sedimentation rate